=== PATIENT | female | born 1955 | race African-American/Black ===

== ENCOUNTER 2018-05-05 20:29 | Emergency (ER) | payer OTHER ==
[2018-05-05] MEDS: DEXAMETHASONE 4 MG TAB PO (22:08)
== END 2018-05-05 22:15 | disposition home or self-care (01) ==
LOC: FTE 20:29
DX: R21 Rash and other nonspecific skin eruption (principal); F17.210 Nicotine dependence, cigarettes, uncomplicated
CPT/HCPCS: 87591; 99283

== ENCOUNTER 2018-09-06 06:40 | Day surgery (SDC) | payer OTHER ==
[2018-09-06] MEDS ORDERED: MEPERIDINE 50 MG INJ (09:15)
[2018-09-06] MEDS ORDERED: MIDAZOLAM 1 MG/ML 2 ML INJ (09:15)
== END 2018-09-06 10:10 | disposition home or self-care (01) ==
LOC: GIL 06:40
DX: Z12.11 Encounter for screening for malignant neoplasm of colon (principal); K44.9 Diaphragmatic hernia without obstruction or gangrene; K64.8 Other hemorrhoids
CPT/HCPCS: 43239; 88305